=== PATIENT | male | born 1990 | race Hispanic/Latino ===

== ENCOUNTER 2023-11-27 06:24 | Inpatient (IN) | payer OTHER, SELFPAY ==
[2023-11-26 23:13] VITALS: BMI 25.4
[2023-11-26 23:14] VITALS: BP 147/100
[2023-11-26 23:32] LABS: % Basophils 0.4 % (0-2); % Eosinophils 2.1 % (0-6); % Immature Granulocytes 0.5 % (0-0.5); % Lymphocytes 61.6 % (20.5-51.1); % Monocytes 5.7 % (1.7-9.3); % Neutrophils 29.7 % (42.2-75.2); Absolute Eosinophils 0.2 10^3/uL (0-0.7); Absolute Lymphocytes 4.7 10^3/uL (1.2-3.4); Absolute Monocytes 0.4 10^3/uL (0.1-0.6); Absolute Neutrophils 2.2 10^3/uL (1.4-6.5); Hematocrit 42.1 % (39.0-52.0); Hemoglobin 14.8 g/dL (13.0-18.0); Mean Corp Hgb Conc. 35.2 g/dL (33.0-37.0); Mean Corpuscular Hgb 30.6 pg (27.0-31.0); Mean Platelet Volume 9.8 fL (7.4-10.4); Nucleated Red Blood Cells % 0 % (-); Platelet Count 260 10^3/uL (130-400); Red Blood Cell Count 4.84 10^6/uL (4.70-6.10); Red Cell Dist. Width 12.6 % (11.5-14.5); White Blood Cell Count 7.6 10^3/uL (4.8-10.8)
[2023-11-26 23:45] LABS: ALT (SGPT) 21 U/L (0-50); AST (SGOT) 25 U/L (17-59); Albumin 5.1 g/dl (3.5-5.0); Alkaline Phosphatase 104 U/L (38-126); Blood Urea Nitrogen 11 mg/dl (9-20); Calcium 9.8 mg/dl (8.4-10.2); Carbon Dioxide 22 mmol/L (22-30); Chloride 101 mmol/L (98-107); Estimated Creatinine Clearance > 125 ml/min; Glucose 105 mg/dl (70-99); Sodium 138 mmol/L (135-145); Total Bilirubin 0.3 mg/dl (0.2-1.3); Total Protein 8.3 g/dl (6.3-8.2); eGFR > 60.00
[2023-11-27] VITALS (18 sets, daily range): BP systolic 96–141; BP diastolic 58–81
[2023-11-27 01:20] LABS: Alcohol None Detected
--- NOTE | 2023-11-27 02:55 | ED.GENMED ---
History of Present Illness
<CAMILO Crenshaw - Last Filed: 11/27/23 04:11>
General
Chief Complaint: Change in Mental Status
Source: patient, family and denture model maker
Exam Limitations: none
Time Seen by Provider: 11/27/23 02:32
Travel History
Have you had any contact with someone who has COVID-19?: No
Do you have any symptoms of coronavirus? Fever > 100 degrees, chills, cough, shortness of breath, sore throat, loss of taste or smell, muscle aches, or headache?: No
History of Present Illness
History of Present Illness:
33 year old male with no significant past medical hx BIBA from home for evaluation of an episode of convulsions that occurred at 2229. Per uncle, pt had an episode of whole body shaking that occurred for around 10 minutes while pt was
sleeping in bed. He notes pt was foaming at the mouth. States pt had a period of fatigue, confusion, drowsiness, and head ache after the shaking. Uncle states pt was not could not open his eyes. Denies any head or oral trauma, incontinence. Pt has
not had symptoms like this before. Currently no chest pain, SOB, head ache, nausea, dizziness. Denies recent sickness, recent travel, or sick contacts. 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 Denies any recent head injury. Denies tobacco or drug use.
Reports occasional etoh use, last use 3 months ago. Pt speaks Vincentian. Online denture model maker was used.
Review of Systems
<CAMILO Crenshaw - Last Filed: 11/27/23 04:11>
Review of Systems
Allergies reviewed?: Yes
All Other Systems: ROS reviewed and negative except as documented in HPI and ROS
Constitutional: Reports fatigue
EENT: Reports no symptoms
Respiratory: Reports no symptoms
Cardiac: Reports no symptoms
ABD/GI: Reports no symptoms
: Reports no symptoms
Musculoskeletal: Reports no symptoms
Skin: Reports no symptoms
Neurological: Reports headache and other (seizure-like episode)
Endocrine: Reports no symptoms
Hematologic/Lymphatic: Reports no symptoms
Psychiatric: Reports no symptoms
Phy Exam
<Rob Gilbert [facility] - Last Filed: 11/27/23 04:11>
General Physical Exam
General Presentation: well appearing and no apparent distress
General age: appears stated age
General Skin: warm and dry
General Habitus: normal
General Mental: alert
General Hydration: appears well hydrated
ENT Exam
ENT Exam: EOMI and other (oropharynx normal, no oral trauma)
Eye Exam
Eye Exam: PERRL and EOMI
Cardiovascular Exam
Cardiovascular Exam: regular rate/rhythm, no edema, no gallop, no murmur and normal peripheral pulses
Pulmonary Exam
Pulmonary Exam: lungs clear, no respiratory distress, no rales, no crackles, no rhonchi, no wheezing and no cough
Neurological Exam
Neurological Exam: alert, oriented x3, no motor deficits, no sensory deficits, speech normal and normal gait
Skin Exam
Skin Exam: normal color and warm/dry
Psychiatric Exam
Psychiatric Exam: normal mood/affect
Course
<Rob Gilbert [facility] - Last Filed: 11/27/23 04:11>
Orders/Labs/Results
Orders:
Orders
11/26/23 23:23
Alcohol Urgent
Complete Blood Count/With Diff Urgent
Comprehensive Metabolic Panel Urgent
Magnesium Urgent
Comment: ADD ON
11/27/23 00:37
Add On- LAB Urgent
Tests Added?: alcohol
11/27/23 02:42
Urinalysis Reflex To Culture Urgent
Date Specimen was Collected: 11/27/23
Time Specimen was Collected: 02:40
Urine Drug Abuse Screen Urgent
Date Specimen was Collected: 11/27/23
Time Specimen was Collected: 02:41
11/27/23 02:58
CT Head W/o Iv Contrast Urgent
Comment:
Reason For Exam: new onset seizure
11/27/23 03:24
Add On- LAB Urgent
Tests Added?: Mg
Electrocardiogram (*1) Urgent
Reason for Study: Syncope
EKG- Treatment ONCE
11/27/23 04:32
Troponin I Urgent
11/27/23 05:39
Levetiracetam Injectable [Keppra] 1,000 mg IV NOW STA
Abnormal Lab Results
11/26/23 11/27/23
23:23 02:42
Absolute Lymphs (auto) 4.7 H 10^3/uL
(1.2-3.4)
Neutrophils % 29.7 L %
(42.2-75.2)
Lymphocytes % 61.6 H %
(20.5-51.1)
Creatinine 0.6 L mg/dL
(0.7-1.3)
Glucose 105 H mg/dl
(70-99)
Total Protein 8.3 H g/dl
(6.3-8.2)
Albumin 5.1 H g/dl
(3.5-5.0)
Urine Ketones Trace A
(Negative)
11/26/23 23:23
11/26/23 23:23
Vital Signs
Initial and Last Documented VS:
Initial Vital Signs
Temp Pulse Resp BP Pulse Ox
97.4 F 73 16 147/100 99
11/26/23 23:14 11/26/23 23:14 11/26/23 23:14 11/26/23 23:14 11/26/23 23:14
Last Documented Vital Signs
Temp Pulse Resp BP Pulse Ox
97.4 F 69 18 109/66 99
11/26/23 23:14 11/27/23 04:30 11/27/23 04:30 11/27/23 04:00 11/26/23 23:14
<Brenda Gomez, DO - Last Filed: 11/27/23 05:49>
Orders/Labs/Results
Orders:
Orders
11/26/23 23:23
Alcohol Urgent
Complete Blood Count/With Diff Urgent
Comprehensive Metabolic Panel Urgent
Magnesium Urgent
Comment: ADD ON
11/27/23 00:37
Add On- LAB Urgent
Tests Added?: alcohol
11/27/23 02:42
Urinalysis Reflex To Culture Urgent
Date Specimen was Collected: 11/27/23
Time Specimen was Collected: 02:40
Urine Drug Abuse Screen Urgent
Date Specimen was Collected: 11/27/23
Time Specimen was Collected: 02:41
11/27/23 02:58
CT Head W/o Iv Contrast Urgent
Comment:
Reason For Exam: new onset seizure
11/27/23 03:24
Add On- LAB Urgent
Tests Added?: Mg
Electrocardiogram (*1) Urgent
Reason for Study: Syncope
EKG- Treatment ONCE
11/27/23 04:32
Troponin I Urgent
11/27/23 05:39
Levetiracetam Injectable [Keppra] 1,000 mg IV NOW STA
Abnormal Lab Results
11/26/23 11/27/23
23:23 02:42
Absolute Lymphs (auto) 4.7 H 10^3/uL
(1.2-3.4)
Neutrophils % 29.7 L %
(42.2-75.2)
Lymphocytes % 61.6 H %
(20.5-51.1)
Creatinine 0.6 L mg/dL
(0.7-1.3)
Glucose 105 H mg/dl
(70-99)
Total Protein 8.3 H g/dl
(6.3-8.2)
Albumin 5.1 H g/dl
(3.5-5.0)
Urine Ketones Trace A
(Negative)
11/26/23 23:23
11/26/23 23:23
Vital Signs
Initial and Last Documented VS:
Initial Vital Signs
Temp Pulse Resp BP Pulse Ox
97.4 F 73 16 147/100 99
11/26/23 23:14 11/26/23 23:14 11/26/23 23:14 11/26/23 23:14 11/26/23 23:14
Last Documented Vital Signs
Temp Pulse Resp BP Pulse Ox
97.4 F 69 18 109/66 99
11/26/23 23:14 11/27/23 04:30 11/27/23 04:30 11/27/23 04:00 11/26/23 23:14
<CAMILO Crenshaw - Last Filed: 11/27/23 04:11>
MDM/Problems Addressed
Differential Diagnosis Includes:
seizure
MDM/Problems Addressed:
33 year old male who presents with an episode of seizure-like activity that occurred Friday.
<CAMILO Crenshaw - Last Filed: 11/27/23 04:11>
*Critical Care Note
Total Time (30-74mins, 75-104mins- exclusive of procedures): Not Applicable
<Brenda Gomez DO - Last Filed: 11/27/23 05:49>
*Radiology
Radiology exam reviewed: radiology read reviewed
*Pulse Oximetry
Patient hypoxic: no
*EKG
Interpreted by ED Provider?: Yes
Interpretation: normal
Comparison EKG: no comparison EKG present
Rate: normal
Rhythm: sinus
[place]: normal axis
Interval: normal interval
QRS Pattern: normal QRS
Ischemia: no ischemia
*Emg Technician Interpretation
Rate: normal
Interpretation: normal
Rhythm: sinus
ED Attending Note
<CAMILO Crenshaw - Last Filed: 11/27/23 04:11>
-
Portions of this chart may have been created with voice recognition software.� Occasional wrong word or��sound alike� substitutions may have occurred due to the inherent limitations of voice recognition software.
<Brenda Gomez DO - Last Filed: 11/27/23 05:49>
ED Attending Note
Patient seen and examined by attending physician: Yes
I performed the substantive portion of visit, reviewed & personally made and approve the management plan that is documented in note by myself or CAROL.: Yes
I performed a history and physical exam of patient and discussed management with resident, I reviewed resident's note and agree with documented findings and plan of care.: Yes
ED Attending Note:
This is a 33-year-old primarily Vincentian-speaking gentleman who resides at home with family. He has no significant past medical history, takes no medicines, denies drug use.
While sleeping in bed tonight his uncle witnessed that patient suddenly screamed and then was noted to have rhythmic shaking of his extremities while lying in bed and noted to have mild foaming at the mouth. Whole body shaking seem to last perhaps
5 to 10 minutes and then resolved. After which he was quite drowsy and remained drowsy upon EMS arrival. Upon arrival to the ED patient is awake and alert, oriented x 3. He has no recollection of tonight's events.
He denies tongue injury. He was not incontinent of bladder nor bowel.
No history of similar episodes in the past. He denies recent fall nor head injury.
Currently feeling well.
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
GENERAL: 33-year-old male appears his stated age, bright and alert, pleasant, appears in no acute distress.
EYE: pupils equal and reactive. Extraocular muscles intact. Anicteric. The head is normocephalic, atraumatic.
NECK: Supple, nontender, no meningismus, no significant adenopathy.
ENT: posterior pharynx is clear, oral mucosa is moist. TM clear b/l, nares patent. Tongue is midline without abrasion.
CARDIAC: Regular rate and rhythm. no murmur.
LUNGS: Clear breath sounds bilaterally, no acute respiratory distress, no wheezes/rales/rhonchi
ABDOMEN: Soft, nondistended, without focal tenderness, normoactive BS.
NEUROLOGICAL: Alert and oriented x3, no focal neuro deficits. Gait is steady.
SKIN: Warm and dry, normal color, skin intact. No rash.
MUSCULOSKELETAL: No C/C/E. peripheral pulses are full and equal b/l. No palpable tenderness.
PSYCH: Normal and appropriate interaction.
History quite concerning for grand mal seizure. Other consideration is cardiac arrhythmia.
He remains bright and alert since arrival to the ED. No recurrent episodes.
Monitor shows normal sinus rhythm without ectopy.
11/27/2023 0547 AM
Patient remains comfortable, no recurrent seizure.
EKG is unremarkable.
CAT scan however shows a very large right frontal lobe cyst.
Patient will need further evaluation with MRI, initiation of Keppra, coordination of services and follow-up which will be markedly difficult and I fear he will be lost to follow-up if he is discharged from the ED with attempt to arrange for
outpatient follow-up.
Will therefore admit to hospitalist service, initiate IV Keppra and plan for neurology evaluation.
Patient will need case management involvement as well.
Case discussed with neurology, Dr. Javed, agrees with plan of care.
Discharge Plan
Departure
Patient Disposition: Admit
Date of Disposition: 11/27/23
Time of Disposition: 05:44
Admit to: Telemetry
Admit to doctor: Kasia
Presentation/result/management discussed w/ accepting MD/DO: Hospitalist
Condition: Fair
Discharge Problem:
New onset seizure, large frontal lobe cyst
Prescriptions:
No Action
No Current Medications
0
Referrals:
NONE,* [Family Provider] -
Interventions
Interventions:
*Risk Screen - Suicide Last Done: 11/26/23 23:20
*General Assessment Last Done: 11/26/23 23:20
*Neglect/Abuse Screening Last Done: 11/26/23 23:20
ED- Fall Risk Assessment Last Done: 11/27/23 00:36
ED- Pulmonary Assessment Last Done: 11/27/23 00:36
ED- Neurological Assessment Last Done: 11/27/23 00:36
ED- Cardiac Assessment Last Done: 11/27/23 00:36
Discharge Date and Time
Print Language: UPPER SORBIAN
[2023-11-27 03:10] LABS: Urine Albumin Negative (Neg - Trace); Urine Bilirubin Negative (Negative); Urine Character Clear (Clear); Urine Color Yellow; Urine Glucose Negative (Negative); Urine Ketone Trace (Negative); Urine Leukocyte Negative (Negative); Urine Nitrite Negative (Negative); Urine Occult Blood Negative (Negative); Urine Specific Gravity 1.015 (<1.030); Urine Urobilinogen Negative (Neg - 1+)
[2023-11-27 03:27] LABS: Amphetamines Negative (Negative); Barbiturates Negative (Negative); Benzodiazepines Negative (Negative); Buprenorphine Negative (Negative); Cocaine Negative (Negative); Marijuana Negative (Negative); Methadone Negative (Negative); Methamphetamines Negative (Negative); Opiates Negative (Negative); Phencyclidine Negative (Negative); Tricyclic Antidepressants Negative (Negative)
[2023-11-27 03:56] LABS: Magnesium 2.2 mg/dl (1.6-2.3)
[2023-11-27 05:26] LABS: Troponin I < 0.012 ng/ml
--- NOTE | 2023-11-27 05:47 | HPS.HSE ---
Family Physician
-
Family Physician: * NONE
Chief Complaint
-
suspect sizure
History of Present Illness
I could not get any information from the patient but Information gathered by chart review and speaking with the ER staff.
33M Lithuanian speaker from home with family , no significant PMHx BiB EMS for evaluation of new onset convulsion
Asper family, uncle witnessed while patient is sleeping suddenly scream followed by rhythmic shaking of his extremities while lying in bed and noted to have mild foaming at the mouth. last perhaps 5 to 10 minutes and then resolved.
Upon arrival patient is drowzy. During the ER stay he becomes awake alert and orented to times 3 but no recollection of above episode. Ovidio HX sz.
Medical History
Past Medical History
Past Medical History: Reports None
Past Surgical History: Reports None
Social History
Tobacco: Non-smoker
Alcohol: None
Drug: None
Living: With Family
Family History
Family History: Not pertinent
Allergies / Home Medications
Allergies reflects when Allergies were last updated in [facility].
Home Medications with original date entered in [facility]
Allergy/Medication List:
Allergies
Allergy/AdvReac Type Severity Reaction Status Date / Time
No Known Allergies Allergy Verified 11/26/23 23:14
Home Medications
No Meds [No Current Medications] 11/27/23
Review of Systems
-
Constitutional: Reports No Symptoms
EENT: Reports No Symptoms
Respiratory: Reports No Symptoms
Cardiac: Reports No Symptoms
Abdomen/GI: Reports No Symptoms
: Reports No Symptoms
Musculoskeletal: Reports No Symptoms
Skin: Reports No Symptoms
Neurological: Reports See HPI
Endocrine: Reports No Symptoms
Hematologic/Lymphatic: Reports No Symptoms
Psych: Reports No Symptoms
Physical Exam
Vital Signs
Vital Signs
Temp Pulse Resp BP Pulse Ox
97.4 F 64 13 118/75 99
11/26/23 23:14 11/27/23 05:42 11/27/23 05:42 11/27/23 05:41 11/26/23 23:14
Physical Exam
General: No Apparent Distress, Comfortable and Conversant
HEENT: NormoCephalic, PERRLA and Neck Nontender
Respiratory: Clear
Cardiac: S1/S2 and Regular Rhythm
Breast: Deferred by me
GI: Soft, Non Tender and Non Distended
Rectal: Deferred by Provider
Genito-urinary: Deferred by me
Musculoskeletal: No Edema
Skin: Warm and Dry
Neuro: AO x 3 and Nonfocal/grossly intact
Psych: Calm
Laboratory Results
-
11/26/23 23:23
11/26/23 23:23
Laboratory Results
Total Bilirubin 0.3 mg/dl (0.2-1.3) 11/26/23 23:23
AST 25 U/L (17-59) 11/26/23 23:23
ALT 21 U/L (0-50) 11/26/23 23:23
Alkaline Phosphatase 104 U/L (38-126) 11/26/23 23:23
Troponin I < 0.012 ng/ml 11/27/23 04:32
Data Reviewed
-
CT Scan: Report Reviewed by me
Lab Data: Labs Reviewed by me
Impression/Plan
-
Reviewed VS: afebrile HR 60-70 BP 110/ 77 RR 19 POx 99 on RA
Data
unremarkable CBC
unremarkable CMP
NEG TPNI
NEG UA
NEG UDS
NEG ETOH
EKG: NSR , normal EKG
HCT
no ICH or other acute process
large indeterminate cyst within or adjacent to the Rt frontlal lobe and suggest OP MRI
ASSESSMENT & PLAN
New onset convulsive Sz ? provoked
HCT POS for large indeterminate cyst within or adjacent to the Rt frontlal lobe but no acute porcess
- agree with Lois
- Brain MRI
- Fall precaution
- Neuro consult
- CRM consult for [facility]
DVT Px: SCD
Full code
IP MS
[2023-11-27] MEDS: KEPPRA 1000 MG IV (06:11)
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
--- NOTE | 2023-11-27 09:55 | W.PN.HOSP.TC ---
Today's Communication/Plan
-
Case management consult pending.
Mri pending
Continue Keppra
Assessment / Plan
Assessment / Plan
Assessment -
33 yo F with no significant PMHx presented to the ER with sudden onset shaky movements and LOC, but no tongue biting, or loss of bowel and bladder control.
Impression -
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
Large right frontal lobe cyst.
Plan -
Grandmal epilepsy
started on Keppra, no episodes since admission
EEG - no evidence of seizures.
Neurology on board appreciate inputs.
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
Large right frontal lobe cyst -
Neurosurgery consulted.
Benign cyst - no further intervention needed.
Continue neurology follow up.
MRI brain pending.
Case management consult to get insurance coverage help and Keppra covered.
Anticipated Discharge: Within 24 hours
Subjective/Interval History
-
Date of Service: November 27, 2023
Reports no symptoms today.
Objective Data
-
Labs:
Laboratory Results
11/26/23
23:23
WBC 7.6
Hgb 14.8
Hct 42.1
Plt Count 260
Sodium 138
Potassium 4.0
Chloride 101
Carbon Dioxide 22
BUN 11
Creatinine 0.6 L
Glucose 105 H
Calcium 9.8
Total Bilirubin 0.3
AST 25
ALT 21
Alkaline Phosphatase 104
Vital Signs:
Vital Signs
Temp Pulse Resp BP Pulse Ox
97.4 F 64 13 100/60 98
11/26/23 23:14 11/27/23 07:30 11/27/23 07:30 11/27/23 07:00 11/27/23 06:19
Review of Systems
-
History Source: Patient
Constitutional: Reports No Symptoms
EENT: Reports No Symptoms Reported
Respiratory: Reports No Symptoms
Cardiac: Reports No Symptoms
Abdomen/GI: Reports No Symptoms
Genitourinary: Reports No Symptoms
Musculoskeletal: Reports No Symptoms
Skin: Reports No Symptoms
Neuro: Reports No Symptoms
Hematologic / Lymphatic: Reports No Symptoms
Physical Exam
-
General: Well Developed, Well Nourished and No Apparent Distress
HEENT: Normocephalic, Atraumatic, Moist Mucous Membranes and PERRLA
Respiratory: Clear to Auscultation; Negative Wheezes, Rales or Rhonchi
Cardiac: Regular Rhythm and S1/S2; Negative Murmur, Rub or Gallop
GI: Soft, Nontender, Nondistended and Normal Bowel Sounds
Genito-urinary: No Costovertebral Tender
Musculoskeletal: No Clubbing and No Cyanosis
Skin: Warm
Neuro: AO x 3, No Motor Deficits and No Sensory Deficits
Hematologic / Lymphatic: No Lymphadenopathy
Psych: Calm
--- NOTE | 2023-11-27 11:25 | W.PN.UPDATE ---
Update Note
Progress Note Update
Patient seen and examined
Discussed with resident
Impression:
Grand mal seizure.
Prolonged postictal state.
Large right frontal lobe cyst
Plan:
Neurology input appreciated.
Loaded with IEVra.
EEG pending
MRI of the brain pending
Will obtain neurosurgery opinion
--- NOTE | 2023-11-27 12:10 | CON.NS ---
Chief Complaint
-
New onset seizure
History of Present Illness
This is a 33-year-old Polish-speaking male who presented status post grand mal seizure. CT of the head was completed which showed a large right frontal arachnoid cyst. He states it is never been seen before. Currently he was mildly postictal but
offers no complaints. He has been seen by neurology.
Review of Systems
-
10 point review of systems was completed negative except stated in the HPI
Medication and Allergies
Home Medications
Home Medications
�Medication �Instructions �Recorded
ibuprofen 200 mg tablet (Advil) 400 mg PO Q8HPRN PRN headache 11/27/23
Allergies
Allergies
Allergy/AdvReac Type Severity Reaction Status Date / Time
No Known Allergies Allergy Verified 11/26/23 23:14
Physical Exam
-
Exam:
AAOx3
Cranial nerves II through XII grossly intact
Respirations unlabored
Motion testing reveals 5 out of 5 upper and lower extremity strength, no drift
Sensory normal
Reflexes normal
CT head shows right frontal arachnoid cyst versus area of encephalomalacia
Problems
-
Problem Status Onset Code
New onset seizure R56.9
Assessment / Plan
-
Right frontal arachnoid cyst, seizure
1. No acute neurosurgical interventions are needed
2. This is a benign finding
3. MRI has been ordered by neurology will follow for results
4. Defer to neurology for any AEDs
--- NOTE | 2023-11-27 12:45 | EEG.RPT ---
Electroencephalogram Report
Recording
Date of EE11/27/23
Type of EEG: Routine
Length of EEG recordin mins
Done with Video Recording: Yes
Patient Status: Emergency Room
Recording Conditions: Awake, Drowsy and Asleep
Hyperventilation Performed: No
Photic Stimulation Performed: Yes
Report
METHODS
A 21 channel digitized electroencephalogram was performed at [facility]. The 10/20 international system of electrode placement was used. In addition to EEG, the patient was monitored for EKG. The duration of the recording was 47 minutes.
BACKGROUND
During the awake state, with the eyes closed, the background consisted of a normal amplitude, 9 Hertz posterior reactive rhythm that attenuated appropriately with eye opening. Beta activity was distributed diffusely with an anterior predominance.
There was a normal anterior-posterior voltage gradient. With eye opening the background activity changed to a low voltage mixture of alpha, beta, and occasional theta range frequencies. There were no significant asymmetries of background activity
noted.
SLEEP
Stage II sleep was obtained and consisted of symmetrical sleep spindles and vertex sharp waves.
HYPERVENTILATION
Hyperventilation was not performed.
PHOTIC STIMULATION
Photic stimulation using a step-branch increase in photic frequency varying from 1-31 Hertz resulted in no driving responses but no appearance of abnormal activity.
ABNORMAL EEG ACTIVITY
None
CLINICAL EVENTS
None
INTERPRETATION AND CLINICAL CORRELATION
This EEG is normal during the awake and sleep states as well as during the activation procedure of photic stimulation. No seizures were noted during the recording. A normal EEG, in itself, does not rule out a diagnosis of epilepsy. If clinical
suspicion for seizure persists, a sleep-deprived and/or prolonged recording may be warranted.
--- NOTE | 2023-11-27 16:42 | PTCARENOTE ---
Patient arrived to floor accompanied by family members. Speaks little singaporean, family assisting to translate No c/o pain, states that he is 'tired' from getting little sleep last nite. Seizure pads on bed. Oriented to unit. Resting comfortably
at present.
[2023-11-27] MEDS: KEPPRA 500 MG PO (19:56)
[2023-11-28 03:00] VITALS: BP 103/59
[2023-11-28] MEDS: KEPPRA 500 MG PO (07:39)
--- NOTE | 2023-11-28 07:44 | W.PN.NEURO.1 ---
Today's Communication / Plan
-
-MRI brain images reviewed
-Levetiracetam 500 mg BID
-Educated on [facility] for affordable medications, references for [facility]
-Understands no driving or operating heavy machinery
-No barriers to discharge
Neuro Assessment/Plan
Assessment
33 year old man with no significant medical history presents with witnessed generalized seizure
1st time new onset seizure
CT head shows large right frontal arachnoid cyst
Arachnoid cyst is of sufficient size that it is possible that abnormal brain in the surrounding area could be at risk for seizure. Also possible that this is an incidental lesion. It is benign. Most likely has had the lesion for many years.
Possibility for recent sleep deprivation on top of arachnoid cyst that triggered the seizure.
Seemed that seizure happened from sleep.
EEG was normal.
I do feel that patient is likely to have further seizures in the future if not on medication given seizure seemed to occur from sleep (these carry higher risk of recurrence) and the large arachnoid cyst seen on brain imaging
Subjective/Objective
Subjective Data
Date of Service: November 28, 2023
No acute events, feeling fine no complaints
Objective Data
Vital Signs
Temp Pulse Resp BP Pulse Ox
97.7 F 59 16 103/59 99
11/28/23 03:00 11/28/23 03:00 11/28/23 03:00 11/28/23 03:00 11/28/23 03:00
Lab Results
11/26/23 23:23
11/26/23 23:23
Sodium 138 mmol/L (135-145) 11/26/23 23:23
Potassium 4.0 mmol/L (3.5-5.1) 11/26/23 23:23
BUN 11 mg/dl (9-20) 11/26/23 23:23
Glucose 105 mg/dl (70-99) H 11/26/23 23:23
Calcium 9.8 mg/dl (8.4-10.2) 11/26/23 23:23
Ur Buprenorphine Negative (Negative) 11/27/23 02:42
Patient Allergies
No Known Allergies Allergy (Verified 11/26/23 23:14)
Review of Systems
-
History Source: Patient
All other systems: Reviewed and negative
Constitutional: No Symptoms
EENT: No Symptoms Reported
Respiratory: No Symptoms
Cardiac: No Symptoms
Abdomen/GI: No Symptoms
Genitourinary: No Symptoms
Musculoskeletal: No Symptoms
Skin: No Symptoms
Neuro: No Symptoms
Endocrine: No Symptoms
Hematologic / Lymphatic: No Symptoms
Allergy / Immunology: No Symptoms
Physical Exam
-
General: Comfortable
Eyes: No Ptosis
HEENT: Normocephalic
Neck: No Bruits Bilaterally
Respiratory: Clear to Auscultation
Cardiac: Regular Rhythm
GI: Normal Bowel Sounds
Skin: Unremarkable
Extremities: No Clubbing
Psych: Unremarkable
Extended Neurological Exam
Mood & Affect: Mood Unremarkable and Affect Unremarkable
Attention Span & Concentration: Awake, Alert and Interactive
Memory: Unremarkable
Tremor: Hand Tremor Absent
Involuntary Movement: None
Speech: Quality Unremarkable and Quantity Unremarkable; Negative Expressive Aphasia, Receptive Aphasia or Dysarthric
Cranial Nerve II: Left Eye: Pupillary Reactivity Unremarkable, Pupillary Size Unremarkable and Visual Rios Intact
Cranial Nerve II: Right Eye: Pupillary Reactivity Unremarkable, Pupillary Size Unremarkable and Visual Rios Intact
Cranial Nerves III, IV, : Extraocular Movement: Extraocular Movement Full in all Directions
Muscle Strength, Overall: Full Throughout
Pronator Drift: No Drift in Upper Extremities
Data Reviewed
-
CT Head: Report Reviewed and Image Reviewed
MRI Head: Image Reviewed
EEG: Report Reviewed
[2023-11-28 08:18] VITALS: BP 96/64
--- NOTE | 2023-11-28 09:21 | PTCARENOTE ---
Patient swiss speaking primarily, does understand some kyrgyz . Denied pain when asked, seizure precautions noted. Currently in MRI.
--- NOTE | 2023-11-28 09:54 | PTCARENOTE ---
Patient's NIH and neurochecks dc'd as per hospitalist.
--- NOTE | 2023-11-28 11:01 | W.PN.HOSP.TC ---
Addendum entered and electronically signed by Saúl White MD 11/28/23 15:27:
Patient seen and examined
Discussed with resident and neurology
33 years old male with tonic-clonic seizure.
No clinical evidence for status epilepticus
Imaging consistent large right frontal arachnoid cyst.
Initiated on Keppra.
Stable for discharge and follow-up with neurology
Patient instructed not to operate heavy machinery or driving.
Original Note:
Today's Communication/Plan
-
Discharge planning.
Assessment / Plan
Assessment / Plan
Assessment -
33 yo F with no significant PMHx presented to the ER with sudden onset shaky movements and LOC, but no tongue biting, or loss of bowel and bladder control.
Impression -
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
Large right frontal lobe cyst.
Plan -
Grandmal epilepsy
started on Keppra, no episodes since admission
EEG - no evidence of seizures.
Neurology on board appreciate inputs.
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
MRI results consistent with CT scan findings. CT of paranasal sinuses recommended.
Large right frontal lobe cyst -
Neurosurgery consulted.
Benign cyst - no further intervention needed.
Continue neurology follow up.
MRI brain pending.
Case management consult to get insurance coverage help and Keppra covered.
Anticipated Discharge: Today
Subjective/Interval History
-
Date of Service: November 28, 2023
No symptoms
Objective Data
-
Labs:
Laboratory Results
11/28/23
10:36
WBC Pending
Hgb Pending
Hct Pending
Plt Count Pending
Sodium Pending
Potassium Pending
Chloride Pending
Carbon Dioxide Pending
BUN Pending
Creatinine Pending
Glucose Pending
Calcium Pending
Vital Signs:
Vital Signs
Temp Pulse Resp BP Pulse Ox
97.8 F 58 16 96/64 98
11/28/23 08:18 11/28/23 08:18 11/28/23 08:18 11/28/23 08:18 11/28/23 08:18
I&O
11/27/23 11/28/23 11/29/23
06:59 06:59 06:59
Intake Total 120 / 120
Balance 120 / 120
Review of Systems
-
History Source: Patient
All other systems: Reviewed and negative
Physical Exam
-
General: Well Developed, Well Nourished, No Apparent Distress and Comfortable
HEENT: Normocephalic, Atraumatic, Moist Mucous Membranes and PERRLA
Respiratory: Clear to Auscultation; Negative Wheezes, Rales or Rhonchi
Cardiac: Regular Rhythm and S1/S2; Negative Murmur, Rub or Gallop
GI: Soft, Nontender and Nondistended
Genito-urinary: Negative No Costovertebral Tender
Musculoskeletal: No Clubbing, No Cyanosis and No Edema
Neuro: AO x 3 and No Motor Deficits
Psych: Calm
[2023-11-28 11:13] LABS: Hematocrit 43.4 % (39.0-52.0); Hemoglobin 14.5 g/dL (13.0-18.0); Mean Corp Hgb Conc. 33.4 g/dL (33.0-37.0); Mean Corpuscular Hgb 30.1 pg (27.0-31.0); Mean Platelet Volume 10.4 fL (7.4-10.4); Platelet Count 242 10^3/uL (130-400); Red Blood Cell Count 4.82 10^6/uL (4.70-6.10); Red Cell Dist. Width 12.6 % (11.5-14.5); White Blood Cell Count 4.8 10^3/uL (4.8-10.8)
[2023-11-28 11:41] VITALS: BP 147/84
[2023-11-28 11:52] LABS: Blood Urea Nitrogen 15 mg/dl (9-20); Calcium 9.6 mg/dl (8.4-10.2); Carbon Dioxide 25 mmol/L (22-30); Chloride 103 mmol/L (98-107); Estimated Creatinine Clearance > 125 ml/min; Glucose 132 mg/dl (70-99); Potassium 3.8 mmol/L (3.5-5.1); Sodium 137 mmol/L (135-145); eGFR > 60.00
--- NOTE | 2023-11-28 13:30 | CM ---
military technology manager reviewed patient's chart and met with patient and spoke with patient's uncle, Benjamín by phone, patient lives with uncle and his family along with his brother, patient arrived 3 months ago from [place], per uncle patient is independent with
adl's and ambulation, patient does not have insurance and patient was provided with application form for [facility] in [place]. Patient also provided with [email or web address] in case there are any access to food concerns.
Plan; Home today no needs.
--- NOTE | 2023-11-28 13:38 | W.DS.TRANS ---
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
-
Discharge Instructions:
Discharge Diagnosis/Procedures Grandmal seizures, Arachnoid cyst in right
frontal lobe
Diet No restrictions
Activity Other activity
Additional Activity No heavy construction working
Driving Restrictions No driving
Bathing Restrictions None
Instructions:
Stand-Alone Forms:
Changes to Home Medications: Yes
Discharge Medications:
DC Medications w/original date entered in [employer]
ibuprofen 200 mg tablet (Advil) 400 mg PO Q8HPRN PRN headache 11/27/23
levetiracetam 500 mg tablet 500 mg PO BID seizure disorder 30 days #60 tabs 11/28/23
Home Medication Changes
levetiracetam 500 mg tablet 500 mg PO BID seizure disorder 30 days #60 tabs 11/28/23
Pending Results: No
--- NOTE | 2023-11-28 13:39 | W.DCSUMMARY ---
Documented by User: Debbie Vaughn MD, Resident 11/28/23 14:43
Discharge Summary
Discharge Data
Date of Admission: 11/27/23
Date of Discharge: 11/28/23
-
Pending Results: No
Hospital Course
Assessment -
33 yo M with no significant PMHx presented to the ER with sudden onset shaky movements and LOC, but no tongue biting, or loss of bowel and bladder control
Impression -
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
Large right frontal lobe cyst.
Hospital course-
During his 1 day hospital course, patient was diagnosed with grand mal epilepsy and was kept on Keppra 500 twice a day. Patient's CT scan of the brain revealed a large right frontal lobe cyst. EEG was within normal limits-no seizure activity. And
MRI evaluation is done to further identify the right frontal lobe/. Future evaluation with CT scan of paranasal sinuses recommended to evaluate bony differentiation between the frontal arachnoid cyst and ethmoidal sinuses.
Patient was discharged home on oral Keppra. Was given resources for GoodRx as patient was not insured, case monitor was on board and an application for angiogram and clinic was given.
Patient is advised to get health insurance.
Investigations -
Brain MRI-11/27
There is a large cystic mass within the right frontal and temporal regions. The appearance is compatible with a large arachnoid cyst. There is no evidence for abnormal adjacent enhancement. There is no significant adjacent white matter edema.
There appears to be extension of this mass adjacent to the right superior margin of the ethmoid sinuses, with widening and the changes of chronic pressure erosion involving the inferomedial right frontal calvarium. Further evaluation with CT of the
paranasal sinuses may be helpful to assess for bony continuity in this region.
Head CT-11/26
No acute intracranial abnormalities appreciated.
Large extra-axial cystic lesion in the right frontal region, measuring 6.0 x 4.7 x 4.6 cm in diameter. Differential diagnosis includes arachnoid cyst, epidermoid cyst, porencephalic cyst, among others.
Please correlate with prior imaging if available. MRI may also be helpful for further characterization.
EEG-11/26
INTERPRETATION AND CLINICAL CORRELATION
This EEG is normal during the awake and sleep states as well as during the activation procedure of photic stimulation. No seizures were noted during the recording. A normal EEG, in itself, does not rule out a diagnosis of epilepsy. If clinical
suspicion for seizure persists, a sleep-deprived and/or prolonged recording may be warranted.
Discharge Plan
-
Patient Disposition: Home (Routine Discharge)
Discharge Diagnosis/Procedures: Grandmal seizures, Arachnoid cyst in right frontal lobe
Condition: Good
Diet: No restrictions
Activity: Other activity
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
Driving Restrictions: No driving
Bathing Restrictions: None
Referrals:
NONE,* [Family Provider] -
Prescriptions:
New
levetiracetam 500 mg Tablet
500 mg PO BID 30 Days Qty: 60 0RF
Continued
ibuprofen [Advil] 200 mg Tablet
400 mg PO Q8HPRN PRN (Reason: headache)
Discharge Orders:
Discharge Patient (As Directed); Ordered 11/28/23
Ordered By: Debbie Vaughn
Discharge Date and Time
Print Language: KENYAN

Documented by User: Saúl White MD 11/28/23 15:26
Discharge Summary
Discharge Data
Date of Admission: 11/27/23
Date of Discharge: 11/28/23
Discharge Plan
-
Patient Disposition: Home (Routine Discharge)
Discharge Diagnosis/Procedures: Grandmal seizures, Arachnoid cyst in right frontal lobe
Condition: Good
Diet: No restrictions
Activity: Other activity
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
Driving Restrictions: No driving
Bathing Restrictions: None
Referrals:
NONE,* [Family Provider] -
Prescriptions:
New
levetiracetam 500 mg Tablet
500 mg PO BID 30 Days Qty: 60 0RF
Continued
ibuprofen [Advil] 200 mg Tablet
400 mg PO Q8HPRN PRN (Reason: headache)
Discharge Orders:
Discharge Patient (As Directed); Ordered 11/28/23
Ordered By: Debbie Vaughn
Discharge Date and Time
Print Language: KENYAN
--- NOTE | 2023-11-28 15:50 | PTCARENOTE ---
Patient discharge instructions reviewed with uncle who is persian speaking and primary caregiver at home. Verbalized understanding of directions and stated he did not have any questions.
== END 2023-11-28 15:57 | disposition home or self-care (01) | DRG 101 ==
LOC: 4 WEST ACU 06:24
PROVIDERS: Student in an Organized Health Care Education/Training Program; ADMITTING PHYSICIAN Internal Medicine; ATTENDING PHYSICIAN Internal Medicine; CONSULT PHYSICIAN Neurological Surgery; EMERGENCY PHYSICIAN Emergency Medicine; OTHER PHYSICIAN Student in an Organized Health Care Education/Training Program
DX: G40.409 Other generalized epilepsy and epileptic syndromes, not intractable, without status epilepticus (principal); G93.0 Cerebral cysts
CPT/HCPCS: 70450; 70553; 80048; 80053; 80306; 81003; 82077; 83735; 84484; 85025; 85027; 93005; 95812; 96374; 99285; A9575